=== PATIENT | male | born 1985 | race Asian ===

== ENCOUNTER 2017-02-25 17:40 | Outpatient (CLI) | payer OTHER | END 2017-02-25 21:44 | disposition home or self-care (01) | LOC: MLB 17:40 | PROVIDERS: ATTEND Surgery | DX: L05.91 Pilonidal cyst without abscess (principal) | CPT/HCPCS: 88304 ==

== ENCOUNTER 2017-04-29 09:28 | Outpatient (CLI) | payer OTHER ==
[2017-04-29 12:06] LABS: ALBUMIN 4.2 g/dL (3.4-5.0); ANION GAP 6.5 (8-16); CARBON DIOXIDE 33.2 mmol/L (21-32); CHOL/HDL RATIO 2.9 (1-4.5); CREATININE 0.9 mg/dL (0.7-1.3); POTASSIUM 3.7 mmol/L (3.5-5.1); TOTAL BILIRUBIN 2.2 mg/dL (0.0-1.0)
[2017-04-29 12:42] LABS: WHITE BLOOD COUNT (AUTO) 3.3 K/uL (4.8-10.8)
[2017-04-29 12:43] LABS: HEMATOCRIT 42.9 % (36-52); HEMOGLOBIN 14.2 g/dL (12.0-18.0); MEAN CORPUSCULAR HEMOGLOBIN 33 pg (27-31); MEAN CORPUSCULAR HGB CONC 33 g/dL (33-37); MEAN CORPUSCULAR VOLUME 99 fL (80-94); PLATELET COUNT (AUTO) 165 K/uL (140-450); RED BLOOD CELL COUNT(AUTO) 4.31 MIL/uL (4.20-6.10); RED CELL DISTRIBUTION WIDTH 12.1 % (11.6-13.7)
[2017-04-29 12:44] LABS: BASOPHILS % (AUTO) 0.3 % (0.0-2.0); EOSINOPHILS % (AUTO) 0.8 % (0.0-4.0); LYMPHOCYTES # (AUTO) 1.5 K/uL (2.0-11.5); MONOCYTES # (AUTO) 0.2 K/uL (0.8-1.0); MONOCYTES % (AUTO) 6.3 % (1.7-9.3); NEUTROPHILS # (AUTO) 1.6 K/uL (1.8-7.7); NEUTROPHILS % (AUTO) 48.6 % (42.2-75.2)
== END 2017-04-29 20:46 | disposition home or self-care (01) ==
LOC: MLB 09:28
PROVIDERS: ATTEND Family Medicine
DX: E80.7 Disorder of bilirubin metabolism, unspecified (principal); D70.9 Neutropenia, unspecified; R79.89 Other specified abnormal findings of blood chemistry
CPT/HCPCS: 36415; 80053; 85025

== ENCOUNTER 2018-05-05 09:08 | Outpatient (CLI) | payer OTHER ==
[2018-05-05 10:26] LABS: BASOPHILS % (AUTO) 0.5 % (0.0-2.0); EOSINOPHILS % (AUTO) 0.9 % (0.0-4.0); HEMATOCRIT 45.6 % (36-52); LYMPHOCYTES # (AUTO) 1.2 K/uL (2.0-11.5); LYMPHOCYTES % (AUTO) 38.2 % (20.5-51.1); MEAN CORPUSCULAR HEMOGLOBIN 33 pg (27-31); MEAN CORPUSCULAR HGB CONC 33 g/dL (33-37); MONOCYTES # (AUTO) 0.3 K/uL (0.8-1.0); MONOCYTES % (AUTO) 10.3 % (1.7-9.3); NEUTROPHILS # (AUTO) 1.5 K/uL (1.8-7.7); NEUTROPHILS % (AUTO) 50.1 % (42.2-75.2); PLATELET COUNT (AUTO) 160 K/uL (140-450); RED BLOOD CELL COUNT(AUTO) 4.57 MIL/uL (4.20-6.10); RED CELL DISTRIBUTION WIDTH 12.3 % (11.6-13.7); WHITE BLOOD COUNT (AUTO) 3.1 K/uL (4.8-10.8)
[2018-05-05 10:59] LABS: ALBUMIN 4.5 g/dL (3.4-5.0); ANION GAP 11.2 (8-16); CARBON DIOXIDE 29.3 mmol/L (21-32); CHOL/HDL RATIO 2.7 (1-4.5); CREATININE 0.8 mg/dL (0.7-1.3); POTASSIUM 4.5 mmol/L (3.5-5.1); THYROID STIMULATING HORMONE 1.16 uIU/mL (0.34-3.74); TOTAL BILIRUBIN 2.1 mg/dL (0.0-1.0)
== END 2018-05-05 21:59 | disposition home or self-care (01) ==
LOC: MLB 09:08
PROVIDERS: ATTEND Family Medicine
DX: D70.9 Neutropenia, unspecified (principal); E80.4 Gilbert syndrome; R79.0 Abnormal level of blood mineral
CPT/HCPCS: 36415; 80053; 82728; 83540; 84443; 85025